=== PATIENT | female | born 1995 | race Caucasian/White ===

== ENCOUNTER 2017-06-23 02:39 | Inpatient (IN) | payer OTHER, MEDICAID ==
[~2017-06-23] VITALS: Ht 175.3 cm; Wt 81.2 kg
--- NOTE | 2017-06-23 05:59 | PCM.HPOB ---
Subjective Date of Service: Jun 23, 2017 Referring Provider: Admitting Physician: Filemon Lynne MD Primary Care Physician: Elias Harris MD Attending Physician: Fileomn Lynne MD Chief Complaint scheduled Induction History of Present History of Present Illness Emory is a pleasant 21-year-old GBS negative at 38W4D presents to [facility] for scheduled induction. Patient has history of Graves' disease (on methimazole 7.5 mg twice a day), and has been receiving weekly NSTs since 2016. Her most recent TSH was 0.22. She has history of severe right lower back pain during and has received OMT for this at the residency clinic. Otherwise patient's history has been uneventful. Patient was transferred to [facility] at 28 weeks station. She is O+ antibody screen negative, diabetes screen negative, Varicella and rubella immune, RPR nonreactive, and HIV negative. Of note patient's MFM ultrasound on 05/10/2017 was unable to visualize the thyroid, and will need thyroid testing after delivery. Patient denies fever, chills, headaches, vision changes, shortness of breath, cough, right upper quadrant pain, nausea, vomiting, diarrhea. OB History: (1), Para (0) Obstetrical Complications: None Past Medical History Obstetrical History: Primiparous at 38 weeks 4 days Gynecologic History: 21-year-old female with no prior Pap smears Medical History: Graves' disease on methimazole 7.5 mg twice a day most recent TSH of 0.22 Surgical History: None Social History: Lives at home with the father of her unborn child Denies tobacco, alcohol, drugs Hx Tobacco Use: No Hx Alcohol Use: No Hx Substance Use: No Past Family History Family History Family history unremarkable Living Arrangement: with Family (lives with father of her unborn child.) Genetic Screening/Counseling Baby father-had child w defect: No Review of Systems Constitutional: Y: Change of appitite, Dizziness, Fever Eyes: Denies: Blurred Vision, Double Vision ENT: Denies: Throat Pain Cardiovascular: Denies: Chest Pain, Palpitations, SOB while laying flat Respiratory: Denies: Cough, Pleuritic Chest Pain, Wheezing Gastrointestinal: Denies: Change in Appetite, Nausea, Vomiting Genitourinary: Denies: Dysuria Musculoskeletal: Denies: Back Pain Skin: Denies: Bruising, Rash Neurological: Denies: Change in Speech, Dizziness, Seizures Medications Home medications Methimazole 7.5 mg twice a day Allergy Coded Allergies: No Known Allergies (Unverified , 06/23/17) Exam Vital Signs T 36.7C, BP 109/70, HR 106, R 18 Exam Vertex position, cervix tight and narrow/ 50% effaced moderate firmness/head posterior Objective A/O X3 Constitutional: Well-developed, Well-nourished HEENT: Atraumatic, PERRLA, EOMI, Scleral Anicteric, Mucous Membr Moist/[place] Lungs: Clear to Auscultation, Normal Air Movement Heart: Exam Unremarkable, Regular Rate/Rhythm, Normal S1, Normal S2, No Murmurs /Rubs/Gallops Abdomen: Gravid, Normal bowel sounds Lymphatic: Normal: Neck Palpation of Nodes Extremities: Pulses Palpable x4, Warm, No Edema Skin: Other (warm dry and intact without rash) Neurological/Psychiatric: Alert, Oriented X3, Cooperative, No Acute Distress Neuro: Grossly Neurologically Intact, Reflexes 2+, No Clonus noted, Strength at 5/5 x4 ext, Normal Speech Gynecologic: Normal: Cervix (narrow and 50% effaced moderately firm, head posterior. ) Labs/Diagnostics Maternal Blood Type: O (positive) Hx Rho(D) Immune Globulin: No Antibody Screen: negative Group B Strep Results: Negative Previous with GBS: No Rubella: Immune Lab History: Negative for: Hx Chicken Pox, Hx Gonorrhea, Hx HIV, Hx Herpes, Hx Syphilis Additional Information Selective immune, hepatitis B and hepatitis C negative. Patient received Tdap 05/05/2017 OB Intrapartum Assessment/Plan Assessment # Labor Induction of a at 38 weeks and 4 days - Patient is GBS negative - Induction orders placed, Cytotec for cirvical ripening given exam cervix 50%/ moderate firmness/head posterior - Routine labs - Routine pre-and post labor care - IV hydration with lactated ringers - Anesthesia consulted Dr. Luisito Marte [phone] p #Graves disease, present on admission - Most recent TSH 0.222 - Followed by MFM and Endocrinology during care - Continue home medications Methimazole 7.5 mg BID - Pediatric hospitalist notified of need for testing for hypothyroidism post delivery (TSH, free T4, total T3). Pain Evaluation: Adequate Pain Control VTE Mechanical Devices: Intermittant Pneumatic CD Attending Statement 21 yo female, 39 weeks gestation. Admitted for induction of labor for hyperthyroidism recommended by MFM. Dated by LMP, compatible with 1st trimester sono. Thyroid function well controlled in with methimazole, 7.5mg bid. Cervical exam: 1/L/moderte/post/-3. Will start cervical ripening wtih cytotec. I saw patient and examined patient. I discussed with patient about management plan. She understood well and agrees. Ralph Mora DO Jun 23, 2017 05:59 Ele Curtis MD Jun 24, 2017 07:29
[2017-06-23] MEDS ORDERED: Lactated Ringer's 1,000 ML IV SCH (07:18)
[2017-06-23] MEDS ORDERED: Lactated Ringer's 1,000 ML IV PRN (07:18)
[2017-06-23] MEDS ORDERED: diphenhydrAMINE 50 mg Capsule PO PRN (07:20)
[2017-06-23] MEDS ORDERED: Methylergonovine 0.2 mg/mL Inj IM PRN (07:20)
[2017-06-23] MEDS ORDERED: Sodium Chloride LOK Flush 10 mL Syringe IVFLUSH PRN (07:20)
[2017-06-23] MEDS ORDERED: Oxytocin 30 Units/500 mL LR 30 UNITS in IV Premix 1 EACH IV PRN (07:20)
[2017-06-23] MEDS ORDERED: Oxytocin 10 Unit/mL Inj IM PRN (07:20)
[2017-06-23] MEDS ORDERED: Carboprost 250 mCg/mL Inj IM PRN (07:20)
[2017-06-23] MEDS ORDERED: Hemorrhage Kit, Post Partum XX ONE (07:20)
[2017-06-23] MEDS: Misoprostol 25 mCg/0.25 Tablet VAGINAL SCH ×5 (08:13→23:20)
[2017-06-23 08:14] LABS: Mean Corpuscular Hemoglobin 29.9 pg (27.0-35.0); Mean Corpuscular Volume 86.3 fL (81-100)
[2017-06-23] MEDS ORDERED: METH5TAB5 PO (08:29)
[2017-06-23] MEDS ORDERED: PREN1TAB87 PO (08:29)
[2017-06-23] MEDS ORDERED: PREN-148 PO (08:29)
[2017-06-23] MEDS ORDERED: fentaNYL-PF 50 mCg/mL 2 mL Inj IVPUSH PRN (18:15)
[2017-06-23] MEDS: Lactated Ringer's 1,000 ML IV SCH (18:29)
[2017-06-24] MEDS: Misoprostol 25 mCg/0.25 Tablet VAGINAL SCH ×6 (03:20→23:20)
--- NOTE | 2017-06-24 06:57 | PCM.PNOBIP ---
Subjective Date of Service Jun 24, 2017 Subjective Overnight: Patient had no complaints. Patient was given low-dose terbutaline for tocolysis at 1830. Balloon was removed this morning at 04:30. Currently el every 2-3 minutes and contractions are lasting 60-90 seconds.. As of 0500 patient cervix is 3-4 cm, 60-70% effaced -3 station, and posterior, with a [place] of 5 and moderately bulging membranes. heart tones are 150 , with moderate variability/posterobasal/negative T cells. Patient was able to shower this morning denies headaches, vision changes, right upper quadrant pain , nausea, vomiting. Currently sitting in her rocking chair and appears comfortable. She says her contractions are now mild to moderately strong. Gastrointestinal: Good Appetite, No N/V Activity: Ambulating Independently Group B Strep Results: Negative Rubella: Immune Blood Type: O (positive) Labs Laboratory Tests 06/23/17 07:40: White Blood Count 9.2, Red Blood Count 4.45, Hemoglobin 13.3, Hematocrit 38.4, Mean Corpuscular Volume 86.3, Mean Corpuscular Hemoglobin 29.9, Mean Corpuscular Hemoglobin Concent 34.6, Red Cell Distribution Width 13.0, Platelet Count 193 Exam Vital Signs Vital Signs Contraction frequency in minutes: MVUs: Vital Signs: VS reviewed, stable Heart Tracings Heart Tones Baseline 150 bpm Heart Rate Variability: Moderate Heart Rate Accelleration: Present Heart Rate Deceleration: Absent Heart Rate Category: I Tocometry/IUPC Contraction frequency in minutes: MVUs: Sterile Vaginal Exam Cervical Dilation: 4 cms Cervical Effacement: 60 % Station: -3 Exam Abdomen: Fundus firm Extremities: No edema Lungs: Clear to Auscultation, Normal Air Movement Heart: Exam Unremarkable, Regular Rate/Rhythm, Normal S1, Normal S2, No Murmurs /Rubs/Gallops General: Alert, Oriented X3, Cooperative, No Acute Distress OB Intrapartum Assessment/Plan Assessment # Labor Induction of a at 38 weeks and 4 days - Patient is GBS negative - Anesthesia consulted Dr. Luisito Marte [phone] p 06/23/2017 - Induction orders placed, Patient s/p cytotec and balloon dialation (removed). Labor progressing slowly at this time. - Currently 3-4 cm dilated 67% efface, -3 station cervix is medium firmness, and head is posterior. - CBC returned within normal limits, GC chlamydia serology is pending - Continue expected management - Routine pre-and post labor care - We will start Pitocin #Graves disease, present on admission - Most recent TSH 0.222 - Followed by MFM and Endocrinology during care - Continue home medications Methimazole 7.5 mg BID - Pediatric hospitalist notified of need for testing for hypothyroidism post delivery (TSH, free T4, total T3). Pain Evaluation: Adequate Pain Control VTE Mechanical Devices: Intermittant Pneumatic CD Attending Statement Patient seen and examined. AROM completed at bedside with return of clear fluid. Cervix 3-4/70/-2. FHT cat 1, El Q2-4 minutes. Continue expectant management. Epidural when desired Ralph Mora DO Jun 24, 2017 06:57 Kaylyn Gutierres MD Jun 24, 2017 08:11
[2017-06-24] MEDS: Lactated Ringer's 1,000 ML IV SCH ×6 (08:34→18:09)
[2017-06-24] MEDS ORDERED: Lactated Ringer's 500 ML IV ONE (10:09)
[2017-06-24] MEDS ORDERED: Ondansetron 2 mg/mL 2 mL Inj IVPUSH PRN (10:10)
[2017-06-24] MEDS ORDERED: Atropine 1 mg/10 mL (Code) Syringe IVPUSH PRN (10:10)
[2017-06-24] MEDS ORDERED: fentaNYL 2 mCg/mL-Bupiv 0.125% 100 ML EPIDURAL SCH (10:10)
[2017-06-24] MEDS ORDERED: EPHEDrine Sulfate 50 mg/mL Inj IVPUSH PRN (10:10)
--- NOTE | 2017-06-24 10:51 | PCM.HPANE ---
Patient Data Surgeon Admitting Provider:Filemon Lynne MD Attending Provider:Filemon Lynne MD Primary Care Physician:Elias Harris MD Other Provider:Naun Johnson Anesthesia Reason for Visit Induction INDUCTION Ht/WT & BMI Body Mass Index Allergies Coded Allergies: No Known Allergies (Unverified , 06/23/17) Past Anesthesia History Anesthesia History: Denies:: Abnormal Airway, Anesthesia Reactions, Difficult Intubation, Fam Anesthesia Reaction, Fam Malignant Hypertherm, Malignant Hyperthermia Medications Reported Medications Vit W-Ca,Fe,FA(<1 mg) ( Vitamins)1 Each Tablet1 Each PO 06/23/17 Methimazole 5 Mg Tablet7.5 PO BID 30 Days 06/23/17 History History of ENT Problems?: No HEENT History: Denies:: Abnormal Airway Cataracts Difficult Intubation Dysphagia Glaucoma Hearing Problem Sinus Problem TMJ Denture Type: None Teeth Condition: Within Normal Limits Hx of Heart Problems?: No Cardiovascular History: Denies:: AICD Abdominal Aortic Aneurism Atrial Fibrillation Cardiac Surgery Chest Pain Congestive Heart Failure Coronary Artery Disease Edema Heart Murmur Hypertension Irregular Heartbeat Pacemaker Peripheral Vascular Rheumatic Fever Thrombophlebitis Valvular Heart Disease Hx of Respiratory Problem?: No Respiratory History: Denies:: Asthma COPD Chest Surgery Cough Dyspnea Emphysema Hemoptysis Oxygen Administration Pneumonia Pulmonary Embolism Tuberculosis Use of C-PAP Machine Use of Inhalers / NEBS Hx Neurologic Problems?: No Neurological History: Denies:: Alzheimer's Disease CVA Dementia Dizziness Headaches Multiple Sclerosis Parkinson's Disease Peripheral Neuropathy Seizures TIA Hx of GI Problems?: No Hx of Problems?: No Female Hx: Positive for:: Currently Hx Musculoskeletal Problems?: No Hx Surgeries?: Yes Hx Alcohol Use: NoHx Substance Use: No Smoking Status: Never Smoker Stop/Bang Risk Assessment Category Category 1A: Patient has history of documented sleep apnea, and HAS NOT received any narcotic, sedative or anesthesia administration during this stay. Category 1B: Patient has history of documented sleep apnea, and HAS received any narcotic , sedative or anesthesia administration during this stay Category 2: Patient has SUSPECTED Obstructive Sleep Apnea, and HAS received any narcotic , sedative or anesthesia administration during this stay. Category 3: Patient has SUSPECTED Obstructive Sleep Apnea and HAS NOT received narcotic, sedative or anesthesia administration during this stay. Category 4: Outpatient in Procedural Areas with known sleep apnea or who screen positive for High Risk via the STOP/BANG questionnaire. Exam Exam General Appearance: Alert, Oriented X3, Cooperative, No Acute Distress HEENT/AIRWAY: MP 2 Lungs: Clear to Auscultation, Normal Air Movement Heart: Exam Unremarkable, Regular Rate/Rhythm, Normal S1, Normal S2, No Murmurs /Rubs/Gallops Meds/Labs/Diagnostics Admission Meds Current Medications Methimazole 7.5 mg 7.5 mg BID PO Last administered on 06/24/17 09:38; Start at 10:15 Lactated Ringer's (Lr) 1,000 ml @ 125 mls/hr Q8H IV Last administered on 08:34; Start 06/23/17 at 17:50 Terbutaline Sulfate (Brethine Inj) 0.25 mg ONCE ONCE SUBQ Last administered on 06/23/17 18:38; Start 06/23/17 at 18:15; Stop 06/23/17 at 18:24; Status DC Labs Test 06/23/17 07:40 06/23/17 12:46 White Blood Count 9.2th/mm3 (3.8-10.1) Red Blood Count 4.45mil/mm3 (3.90-5.20) Hemoglobin 13.3g/dL (12.0-15.6) Hematocrit 38.4% (35.0-46.0) Mean Corpuscular Volume 86.3fL (81-100) Mean Corpuscular Hemoglobin 29.9pg (27.0-35.0) Mean Corpuscular Hemoglobin Concent 34.6% (32.0-37.0) Red Cell Distribution Width 13.0% (12.3-15.4) Platelet Count 193bil/L (150-400) Plan Impression Patient chart reviewed, patient interviewed and anesthestic plan with risks, benefits, and alternatives discussed, and informed consent obtained. ASA Physical Status: ASA2 Mod Systemic Disease Anesthetic Plan: Epidural Bene/Risks/Altern/Consents: Yes HP Complete Prior to Induction: Yes Christ Rain MD Jun 24, 2017 10:09
[2017-06-24] MEDS ORDERED: Benzocaine (Dermoplast) 20% 60 Gm Spray TOPICAL PRN (16:30)
[2017-06-24] MEDS ORDERED: LANOlin HPA 7 Gm Ointment TOPICAL PRN (16:30)
[2017-06-24] MEDS ORDERED: Hemorrhage Kit, Post Partum XX ONE (16:30)
[2017-06-24] MEDS ORDERED: Carboprost 250 mCg/mL Inj IM PRN (16:30)
[2017-06-24] MEDS ORDERED: Oxytocin 30 Units/500 mL LR 30 UNITS in IV Premix 1 EACH IV PRN (16:30)
[2017-06-24] MEDS: Sodium Chloride LOK Flush 10 mL Syringe IVFLUSH SCH (16:30)
[2017-06-24] MEDS ORDERED: Methylergonovine 0.2 mg/mL Inj IM PRN (16:30)
[2017-06-24] MEDS ORDERED: Witch Hazel-Glycerin Pads TOPICAL PRN (16:30)
[2017-06-24] MEDS ORDERED: Oxytocin 10 Unit/mL Inj IM PRN (16:30)
--- NOTE | 2017-06-24 16:43 | PCM.OBVAG ---
Vaginal Delivery Date of Service Jun 24, 2017 Pre Operative Diagnosis Pre Operative Diagnosis 21-year-old GBS negative at 38W4D scheduled induction Post Operative Diagnosis Post Operative Diagnosis 21-year-old GBS negative scheduled induction at 38W4D s/p with AROM Procedure Obstetical Procedure: Normal Spontaneous Vaginal Delivery It Network Engineer/Night Time Babysitter Provider and Night Time Babysitter: Dr. Kaylyn Boykin, R1 Indication for Procedure Induction: Induction of labor, AROM, Progressed normally through labor Findings Obstetrical Findings: (Male), Cord (3 Vessel), Weight (pending ) , Presentation (Vertex), Placenta (Intact/Normal), Perineal Laceration (1st degree) Analgesia/Medications Obstetrical Anesthesia: Epidural Procedure Details Procedure Details Patient was known to be complete and pushing. She was placed in dorsal lithotomy position. She pushed and head presented anteriorly in [place] position. She had a single nuchal cord which was released without difficulty. The anterior shoulder delivered without difficulty. There was a compound presentation with hand present, the posterior arm delivered successfully. Delayed cord clamping for 60 seconds, cord was clamped and cut. Cord blood was obtained. Pitocin was started per protocol. The placenta delivered intact. Perineum with mild, first degree laceration repaired with 3-0 vicryl sutures. Blood Loss & Administration Estimated Blood Loss: 200 Blood Admin during procedure: No Post Procedure Plan Post Procedure Plan # - Continue routine care - Ibuprofen 800mg PRN for pain management Post delivery Condition: Mom stable, Baby stable to nursery VTE Prophylaxis: Sophie Mcrae DO Jun 24, 2017 16:34
[2017-06-24] MEDS ORDERED: Ascorbic Acid 500 mg Tablet PO SCH (17:30)
[2017-06-25] MEDS: Lactated Ringer's 1,000 ML IV SCH ×6 (00:26→10:09)
[2017-06-25] MEDS: Sodium Chloride LOK Flush 10 mL Syringe IVFLUSH SCH ×2 (00:30→08:30)
[2017-06-25] MEDS: Misoprostol 25 mCg/0.25 Tablet VAGINAL SCH ×2 (03:20→07:20)
[2017-06-25 06:47] LABS: Mean Corpuscular Hemoglobin 29.9 pg (27.0-35.0); Mean Corpuscular Volume 88.5 fL (81-100)
--- NOTE | 2017-06-25 10:14 | PCM.DIMED ---
Discharge Instructions Date of Service Jun 25, 2017 Dates of Hospitalization Jun 23, 2017 at 07:06 Discharge Diagnosis Discharge Diagnosis Status post normal spontaneous vaginal delivery at 38 weeks 4 days of a 2812 g male born infant Diet Discharge Diet: No restrictions Activity Discharge Activity: Limited until seen by PCP (no lifting more than 10 pounds for 6 weeks.) Call your provider Call your provider for: Fever or Chills, Shortness of breath, Bleeding, Chest pain, Vomitting, Excessive diarrhea, Weakness (unilateral) Patient Instructions Patient Instructions You have been given a prescription for ibuprofen for pain. Take 1 tablet of 800 mg ibuprofen every 6-8 hours as needed for pain. You has been provided a prescription for docusate a stool softener. Please take docusate as needed for constipation. If you experience any increased bleeding please call [facility]. If you experience breast redness swelling and tenderness continue to breast- feed and return to [facility]. If you begin to experience dizziness weakness or large amount of bleeding go to the emergency room. This means if you soak 2 or more pads for more than 2 hours than call the clinic or go to the Emergency Room. You have been set up for an appointment for follow-up in 2 weeks at [facility]. Please check your BP several times between now and then and write them in a log to bring to your 2 week clinic visit. If you experience depression, Please seek help by calling [facility] or the Emergency Room. Nothing per vagina for 6 weeks (this includes tampons and intercourse). Drink plenty of water and eat lots of fruits and vegetables. If you spike a fever in the next 2 weeks please call [facility] clinic. Follow-up plan Follow-up in 6 weeks at [facility]. Follow-up with PCP in: 6 weeks Ralph Mora DO Jun 25, 2017 10:14
--- NOTE | 2017-06-25 10:23 | PCM.DC.OB ---
Obstetrical Discharge Summary Date of Service Jun 25, 2017 Date of hospital admission Jun 23, 2017 at 07:06 Date of Discharge: Jun 25, 2017 Providers Admitting Physician: Filemon Lynne MD Primary Care Physician: Elias Harris MD Attending Physician: Filemon Lynne MD Diagnosis at Time of Discharge # Status post normal spontaneous vaginal delivery after elective induction at 38 weeks 4 days of a 2812 g live-born male on 06/24/2017 at 1548 Problems: (1) Elective induction of labor planned Status: Acute ICD Code: [id number] (2) Vaginal delivery Status: Acute ICD Code: O80 (3) Graves disease Status: Acute ICD Code: E05.00 Consultations Anesthesiology for epidural Brief History and Physical: Emory is a pleasant 21-year-old GBS negative at 38W4D presents to [facility] for scheduled induction. Patient has history of Graves' disease (on methimazole 7.5 mg twice a day), and has been receiving weekly NSTs since 2016. Her most recent TSH was 0.22. She has history of severe right lower back pain during and has received OMT for this at the residency clinic. Otherwise patient's history has been uneventful. Patient was transferred to [facility] at 28 weeks station. She is O+ antibody screen negative, diabetes screen negative, Varicella and rubella immune, RPR nonreactive, and HIV negative. Of note patient's MFM ultrasound on 05/10/2017 was unable to visualize the thyroid, and will need thyroid testing after delivery. Patient denies fever, chills, headaches, vision changes, shortness of breath, cough, right upper quadrant pain, nausea, vomiting, diarrhea. Exam Abdomen: Fundus firm 1 tingling below the umbilicus Extremities: No edema, ambulating without difficulty Lungs: Clear to Auscultation, Normal Air Movement Heart: Exam Unremarkable, Regular Rate/Rhythm, Normal S1, Normal S2, No Murmurs /Rubs/Gallops General: Alert, Oriented X3, Cooperative, No Acute Distress Hospital Course: Mother was admitted for elective induction at 38 weeks 4 days, at time of presentation cervical exam was 3 cm dilated, 60% effaced, and -3 with narrow thick moderate cervix. Patient was category 1 with heart tones at 150, moderate variability, positive accelerations, negative decelerations. Patient' s was called care with history of Graves' disease and patient takes methimazole 7.5 mg twice a day which was administered while admitted. Cytotec was initially started and later discontinued for uterine hyperstimulation. Patient had balloon placed. Membranes were artificially ruptured and labor progressed to delivery to normal spontaneous vaginal delivery of a 2812 g live- born male with Apgars 8 and 9 at 1548 on 06/24/2017. One three-vessel loose nuchal cord. Patient did well and is voiding without difficulty ambulating without assistance, appetite is good, and passing gas. She was discharged home on 06/25/2017. Docusate Sodium (Colace) 100 Mg Capsule 100 MG PO BID Prescribed by: RALPH CHRISTIAN DO Ibuprofen (Ibuprofen) 800 Mg Tablet 800 MG PO Q6H PRN PRN For Pain Prescribed by: RALPH CHRISTIAN DO Methimazole (Methimazole) 5 Mg Tablet 7.5 PO BID (Reported) Last Taken: Unknown Dose on 06/22/17 2200 Vit W-Ca,Fe,FA(<1 mg) ( Vitamins) 1 Each Tablet 1 EACH PO (Reported) Discharge Diet: No restrictions Discharge Activity-General: No restrictions, Pelvic Rest for 6 weeks, Pelvic Rest, Balance rest and activity, Ice incision 3-5 time/day for 20min, Activity as pain allows, No lifting >15 pounds for 2 weeks Ralph Christian DO Jun 25, 2017 10:23
[2017-06-25] MEDS ORDERED: fentaNYL-PF 50 mCg/mL 2 mL Inj IVPUSH PRN (10:25)
[2017-06-25] MEDS ORDERED: DOCU-41 PO (10:42)
[2017-06-25] MEDS ORDERED: IBUP800T28 PO (10:42)
[2017-06-25 10:51] VITALS: BP 102/52; PULSE 75; RESP 18
== END 2017-06-25 11:29 | disposition home or self-care (01) | DRG 775 ==
LOC: FBC 07:06
PROVIDERS: ADMIT Legal Medicine; ATTEND Legal Medicine
PROC: 3E033VJ Introduction of Other Hormone into Peripheral Vein, Percutaneous Approach (ICD-10-PCS; 2017-06-23)
PROC: 10E0XZZ Delivery of Products of Conception, External Approach (ICD-10-PCS; principal; 2017-06-24)
PROC: 0HQ9XZZ Repair Perineum Skin, External Approach (ICD-10-PCS; 2017-06-24)
PROC: 10H07YZ Insertion of Other Device into Products of Conception, Via Natural or Artificial Opening (ICD-10-PCS; 2017-06-24)
PROC: 10907ZC Drainage of Amniotic Fluid, Therapeutic from Products of Conception, Via Natural or Artificial Opening (ICD-10-PCS; 2017-06-24)
DX: O99.284 Endocrine, nutritional and metabolic diseases complicating childbirth (principal); E05.00 Thyrotoxicosis with diffuse goiter without thyrotoxic crisis or storm; O70.0 First degree perineal laceration during delivery; O69.1XX0 Labor and delivery complicated by cord around neck, with compression, not applicable or unspecified; Z3A.38 38 weeks gestation of pregnancy; Z37.0 Single live birth